=== PATIENT | male | born 1960 | race Caucasian/White ===

== ENCOUNTER → 2018-06-21 07:32 | Outpatient (CLI) | payer BC, SELFPAY ==
[2018-06-21 07:50] LABS: Bacteria Urine None Seen; RBC Urine None Seen (0-5/HPF); WBC Urine None Seen (0-5/HPF)
[2018-06-21 08:17] LABS: Add Manual Diff / Slide Review NO; Basophils Absolute Auto 0 /uL (0-100); Basophils Percent Auto 0.4 % (0-2); Eosinophils Absolute Auto 100 /uL (0-450); Eosinophils Percent Auto 1.2 % (2-4); Hematocrit 42.2 % (41-53); Hemoglobin 14.1 g/dL (13.5-17.5); Lymphocytes Absolute Auto 1800 /uL (1100-4500); Lymphocytes Percent Auto 27.1 % (25-40); Mean Corpuscular HGB Conc 33.4 % (30-36); Mean Corpuscular Hemoglobin 28.7 PG (26-34); Monocytes Absolute Auto 600 /uL (0-900); Monocytes Percent Auto 8.2 % (3-14); Neutrophils Absolute Auto 4300 /uL (1500-7000); Neutrophils Percent Auto 63.1 % (50-75); Platelet Count 209 X10^3/uL (150-400); Red Blood Cell Count 4.91 X10^6/uL (4.5-5.9); Red Cell Distribution Width 13.3 % (11.6-14.8); White Blood Cell Count 6.8 X10^3/uL (4.5-11.0)
[2018-06-21 08:28] LABS: Hemoglobin A1C% w Est Avg Glu 5.4 % (4.0-6.0)
[2018-06-21 08:30] LABS: Alanine Aminotransferase 41 IU/L (21-72); Albumin 4.8 g/dL (3.5-5.0); Albumin Globulin Ratio 1.6 (1.0-2.8); Alkaline Phosphatase 43 U/L (38-126); Aspartate Aminotransferase 20 IU/L (17-59); BUN Creatinine Ratio 23.8 (6-22); Bilirubin Total 0.6 mg/dL (0.2-1.3); Blood Urea Nitrogen 19 mg/dL (9-20); Calcium 9.6 mg/dL (8.4-10.2); Carbon Dioxide 29 mmol/L (22-32); Chloride 99 mmol/L (98-107); Cholesterol 198 mg/dL (140-199); Estimated Glomerular Filt Rate > 60.0 mL/min (>60); Glucose 94 mg/dL (70-100); HDL Cholesterol 58 mg/dL (40-60); HEMOLYSIS < 15 (0-50); LDL Cholesterol Calculated 116 mg/dL (<100); Potassium 3.9 mmol/L (3.4-5.1); Sodium 138 mmol/L (137-145); Total Protein 7.8 g/dL (6.3-8.2); Triglycerides 121 mg/dL (35-150)
[2018-06-21 08:52] LABS: Free T4, Direct Thyroxine 0.87 ng/dL (0.78-2.19)
[2018-06-21 09:05] LABS: Thyroid Stimulating Hormone 1.36 uIU/mL (0.47-4.68)
[2018-06-21 09:48] LABS: Appearance Urine UA CLEAR; Bilirubin Urine UA NEGATIVE (NEGATIVE); Color Urine UA YELLOW; Glucose Urine UA NEGATIVE (Negative); Ketones Urine UA NEGATIVE (NEGATIVE); Leukocyte Esterase Urine UA NEGATIVE (NEGATIVE); Nitrite Urine UA NEGATIVE (Negative); Occult Blood Urine UA NEGATIVE (Negative); Protein Urine UA NEGATIVE (Negative); Specific Gravity Urine UA 1.015 (1.000-1.035); Urobilinogen Urine UA 0.2 E.U./dL (0.2); pH Urine UA 6.5 (4.5-8.0)
[2018-06-21 09:54] LABS: Culture Indicated Urine Cult Not Indicated; Urine Comments Microscopic Normal
[2018-06-24 22:55] LABS: Albumin 4.8 g/dL (3.6-5.1); Sex Hormone Binding Globulin 25 nmol/L (22-77); Testosterone, Bioavailable 89.2 ng/dL (110.0-575.0); Testosterone, Total 268 ng/dL (250-1100); Testosterone,Free 40.8 pg/mL (46.0-224.0)
[2018-06-25 16:32] LABS: Triiodothyronine T3 Total 103 ng/dL (76-181)
== END ==
PROVIDERS: Visit Provider Internal Medicine
DX: R73.9 Hyperglycemia, unspecified (principal); M85.80 Other specified disorders of bone density and structure, unspecified site; E29.1 Testicular hypofunction; R82.994 Hypercalciuria
CPT/HCPCS: 36415; 80053; 80061; 81001; 82040; 83036; 84270; 84403; 84439; 84443; 84480; 85025

== ENCOUNTER → 2018-07-04 15:56 | Outpatient (CLI) | payer BC, SELFPAY ==
[2018-07-04 16:01] LABS: Bacteria Urine None Seen; RBC Urine None Seen (0-5/HPF); WBC Urine None Seen (0-5/HPF)
[2018-07-04 16:17] LABS: Appearance Urine UA CLEAR; Bilirubin Urine UA NEGATIVE (NEGATIVE); Color Urine UA YELLOW; Glucose Urine UA NEGATIVE (Negative); Ketones Urine UA NEGATIVE (NEGATIVE); Leukocyte Esterase Urine UA NEGATIVE (NEGATIVE); Nitrite Urine UA NEGATIVE (Negative); Occult Blood Urine UA NEGATIVE (Negative); Protein Urine UA NEGATIVE (Negative); Specific Gravity Urine UA <=1.005 (1.000-1.035); Urobilinogen Urine UA 0.2 E.U./dL (0.2); pH Urine UA 6.5 (4.5-8.0)
[2018-07-04 16:39] LABS: Culture Indicated Urine Cult Not Indicated; Squamous Epithelial Cell Urine 0-1 /HPF
== END ==
PROVIDERS: Visit Provider Internal Medicine
DX: R82.994 Hypercalciuria (principal); R73.9 Hyperglycemia, unspecified; M85.80 Other specified disorders of bone density and structure, unspecified site; E29.1 Testicular hypofunction
CPT/HCPCS: 81001

== ENCOUNTER → 2018-07-08 09:57 | Outpatient (CLI) | payer BC, SELFPAY | PROVIDERS: Visit Provider Internal Medicine | DX: M85.852 Other specified disorders of bone density and structure, left thigh (principal); R82.994 Hypercalciuria | CPT/HCPCS: 77080; 82340; 82570 ==

== ENCOUNTER → 2018-07-08 17:06 | Outpatient (CLI) | payer BC, SELFPAY ==
[2018-07-09 01:17] LABS: Calcium Urine Random 8.3
[2018-07-09 11:59] LABS: Creatinine Urine Random 129.1 mg/dL
== END ==
PROVIDERS: Visit Provider Internal Medicine
DX: R82.994 Hypercalciuria (principal)
CPT/HCPCS: 82340

== ENCOUNTER → 2018-10-22 09:14 | Outpatient (CLI) | payer BC, SELFPAY ==
--- NOTE | 2018-10-22 | DI.RAD.S_ITS ---
PROCEDURE: XR SACRUM COCCYX MIN 2V INDICATIONS: CLOSED HEAD INJURY TECHNIQUE: 3 views of the sacrum and coccyx acquired. COMPARISON: None. FINDINGS: Bones: No fractures or dislocations. No suspicious bony lesions. Soft tissues: Visualized bowel gas pattern is normal. No suspicious soft tissue densities. IMPRESSION: No acute sacral or coccygeal fracture. Dictated by: Ankur Flores M.D. on 10/22/2018 at 11:13 Approved by: Ankur Flores M.D. on 10/22/2018 at 11:13
--- NOTE | 2018-10-22 | DI.CT.S_ITS ---
PROCEDURE: CT HEAD/BRAIN WO CON INDICATIONS: CLOSED HEAD INJURY TECHNIQUE: Noncontrast 4.5 mm thick angled axial sections acquired from the foramen magnum to the vertex, with coronal and sagittal reformats. For radiation dose reduction, the following was used: automated exposure control, adjustment of mA and/or kV according to patient size. COMPARISON: [facility], CR, XR SACRUM COCCYX MIN 2V, 10/22/2018, 9:23. [facility], CR, XR LUMBAR SPINE 2-3V, 10/22/2018, 9:22. FINDINGS: Image quality: Excellent. CSF spaces: Basal cisterns are patent. No extra-axial fluid collections. Ventricles are normal in size and shape. Brain: No midline shift. No intracranial masses or hemorrhage. James-white matter interface is normal. Skull and face: Calvarium and visualized facial bones are intact, without suspicious lesions. Sinuses: Visualized sinuses and mastoids are clear. IMPRESSION: Unremarkable intracranial study, without acute intracranial hemorrhage. Dictated by: John Garvin M.D. on 10/22/2018 at 9:07 Approved by: John Garvin M.D. on 10/22/2018 at 9:08
--- NOTE | 2018-10-22 | DI.RAD.S_ITS ---
PROCEDURE: XR LUMBAR SPINE 2-3V INDICATIONS: CLOSED HEAD INJURY TECHNIQUE: 3 views of the lumbar spine were acquired. COMPARISON: None. FINDINGS: Bones: 5 [id number] vertebrae are present. There is normal bony alignment. No vertebral body compression fractures. No suspicious bony lesions. Soft tissues: Overlying bowel gas pattern is normal. No suspicious soft tissue calcifications. IMPRESSION: No compression fracture or spondylolisthesis the lumbar spine. Dictated by: Ankur Flores M.D. on 10/22/2018 at 11:05 Approved by: Ankru Flores M.D. on 10/22/2018 at 11:12
== END ==
PROVIDERS: PCP Internal Medicine; Visit Provider Nurse Practitioner Family
DX: S09.90XA Unspecified injury of head, initial encounter (principal); X58.XXXA Exposure to other specified factors, initial encounter
CPT/HCPCS: 70450; 72100; 72220